=== PATIENT | male | born 1990 ===

== ENCOUNTER 2018-03-15 13:28 | Emergency (ER) | payer BC ==
[2018-03-15 13:38] VITALS: BP 141/87
--- NOTE | 2018-03-15 13:44 | UC ---
Lower Extremity/Ankle HPI - HPI Summary HPI Summary: Patient hit his right caicedo will playing football. Has large bruise anterior caicedo radiated around to the lateral side of his leg states that his lower leg anteriorly, the bone, hurts. - History of Current Complaint Chief Complaint: UCLowerExtremity Stated Complaint: LEG INJURY Time Seen by Provider: 03/15/18 13:40 Hx Obtained From: Patient Onset/Duration: Sudden Onset, Lasting Days Pain Intensity: 6 Pain Scale Used: 0-10 Numeric Aggravating Factor(s): Ambulation Alleviating Factor(s): Rest, Elevation Able to Bear Weight: Yes - Allergies/Home Medications Allergies/Adverse Reactions: Allergies Allergy/AdvReac Type Severity Reaction Status Date / Time Penicillins Allergy unk Verified 03/15/18 13:38 Home Medications: Home Medications Meloxicam 7.5 mg PO BID 03/15/18 [History Confirmed 03/15/18] Methylphenidate TAB* [Ritalin TAB*] 20 mg PO DAILY 03/15/18 [History Confirmed 03/15/18] PMH/Surg Hx/FS Hx/Imm Hx Previously Healthy: No - Add - Surgical History Surgical History: Yes Surgery Procedure, Year, and Place: hydrocele - Family History Known Family History: Positive: None - Social History Occupation: Unemployed Lives: With Family Alcohol Use: Occasionally Substance Use Type: None Smoking Status (MU): Light Every Day Tobacco Smoker Review of Systems Constitutional: Negative Skin: Negative Eyes: Negative ENT: Negative Respiratory: Negative Cardiovascular: Negative Gastrointestinal: Negative Genitourinary: Negative Motor: Negative Neurovascular: Negative Musculoskeletal: Arthralgia - mid anterior tibia Neurological: Negative Psychological: Negative Is Patient Immunocompromised?: No All Other Systems Reviewed And Are Negative: Yes Physical Exam Triage Information Reviewed: Yes Appearance: Well-Appearing, No Pain Distress, Well-Nourished Vital Signs: Initial Vital Signs Temp 96.8 F 03/15/18 13:34 Pulse 104 03/15/18 13:34 Resp 20 03/15/18 13:34 BP 141/87 03/15/18 13:34 Pulse Ox 100 03/15/18 13:34 Vital Signs Reviewed: Yes Eye Exam: Normal Eyes: Positive: Conjunctiva Clear ENT Exam: Normal ENT: Positive: Normal ENT inspection, Hearing grossly normal. Negative: Dental tenderness, Sinus tenderness, Uvula midline Dental Exam: Normal Neck exam: Normal Neck: Positive: Supple, Nontender Respiratory Exam: Normal Respiratory: Positive: Chest non-tender, No respiratory distress, No accessory muscle use Cardiovascular Exam: Normal Cardiovascular: Positive: RRR, Pulses Normal, Brisk Capillary Refill Musculoskeletal Exam: Normal Musculoskeletal: Positive: Strength Intact, ROM Intact, No Edema, Other: - contusion anterior right lower leg Neurological Exam: Normal Neurological: Positive: Alert, Muscle Tone Normal Psychological Exam: Normal Skin Exam: Normal Diagnostics - Radiology No standard instances Xray Interpretation: No Acute Changes Radiology Interpretation Completed By: ED Physician, Radiologist Lower Extremity Course/Dx - Course Course Of Treatment: partha wrap, rice, tylenol, ibuprofen follow with pcp prn - Differential Dx/Diagnosis Provider Diagnoses: anterior contusion right lower leg, elevated BP with out dx of hypertension Discharge - Sign-Out/Discharge Documenting (check all that apply): Discharge/Admit/Transfer - Discharge Plan Condition: Stable Disposition: HOME Patient Education Materials: Ibuprofen (By mouth), Contusion in Adults (ED), Hypertension (ED), R.I.C.E. Treatment (ED) Referrals: [facility] [place] [facility] REFERRAL [Outside] - 1 Week No Primary Care Phys,NOPCP [Primary Care Provider] - - Billing Disposition and Condition Condition: STABLE Disposition: HOME
--- NOTE | 2018-03-15 14:14 | RAD ---
HISTORY: Right lower leg injury COMPARISONS: None VIEWS: 2, Frontal and lateral views of the right foreleg FINDINGS: BONE DENSITY: Normal. BONES: There is no displaced fracture. JOINTS: There is no arthropathy. ALIGNMENT: There is no dislocation. SOFT TISSUES: Unremarkable. OTHER FINDINGS: None. IMPRESSION: NO ACUTE OSSEOUS INJURY. IF SYMPTOMS PERSIST, RECOMMEND REPEAT IMAGING.
== END 2018-03-15 14:40 | disposition home or self-care (01) ==
LOC: UCEAST 13:28
DX: S80.11XA Contusion of right lower leg, initial encounter (principal); W22.09XA Striking against other stationary object, initial encounter; Y93.61 Activity, american tackle football; Y92.096 Garden or yard of other non-institutional residence as the place of occurrence of the external cause; R03.0 Elevated blood-pressure reading, without diagnosis of hypertension; F98.8 Other specified behavioral and emotional disorders with onset usually occurring in childhood and adolescence; Z88.0 Allergy status to penicillin; F17.200 Nicotine dependence, unspecified, uncomplicated
CPT/HCPCS: 99212; G0463